=== PATIENT | male | born 1985 ===

== ENCOUNTER 2023-12-24 09:11 | Emergency (ER) | payer SELFPAY ==
[2023-12-24 10:18] LABS: BASOPHILS PERCENT AUTO 0.7 % (0.0-1.0); EOSINOPHILS PERCENT AUTO 0.9 % (1.0-3.0); HEMATOCRIT 45.1 % (40.0-54.0); HEMOGLOBIN 15.2 g/dL (14.0-18.0); MEAN CORPUSCULAR HEMOGLOBIN 31.1 pg (27.0-34.0); MEAN CORPUSCULAR HGB CONC 33.7 g/dL (33.0-35.0); MEAN CORPUSCULAR VOLUME 92.2 fL (80-100); MONOCYTES PERCENT AUTO 8.1 % (2-8); NEUTROPHILS PERCENT AUTO 53.3 % (42.2-75.2); PLATELET COUNT,PLT 241 10^3/uL (150-450); RED BLOOD CELL COUNT 4.89 10^6/uL (4.6-6.2); WHITE BLOOD CELL COUNT,WBC 11.7 10^3/uL (5.0-10.0)
[2023-12-24 10:22] LABS: ANION GAP 15.8 mEq/L (7-13); BLOOD UREA NITROGEN,BUN 15 mg/dL (7-18); CALCIUM 8.7 mg/dL (8.5-10.1); CARBON DIOXIDE,CO2 26 mmol/L (21-32); CHLORIDE,CL 105 mmol/L (98-107); CREATININE 0.75 mg/dL (0.70-1.30); GLUCOSE RANDOM 90 mg/dL (70-99); POTASSIUM,K 3.8 mmol/L (3.5-5.1); SODIUM,NA 143 mmol/L (136-145)
[2023-12-24 10:24] LABS: ESTIMATED GFR 118 mL/min (>=60)
[2023-12-24] MEDS: Take Home: Doxycycline 100 MG Cap, 4 Cap Pack PO ONE (10:42)
== END 2023-12-24 10:47 | disposition home or self-care (01) ==
LOC: DL.ED 09:11
DX: L02.214 Cutaneous abscess of groin (principal); L73.2 Hidradenitis suppurativa
CPT/HCPCS: 36415; 80048; 85025; 87040; 99283; A9270